=== PATIENT | female | born 1960 | race Asian ===

== ENCOUNTER 2019-02-14 09:12 | Emergency (ER) | payer OTHER, BC ==
[~2019-02-14] VITALS: Ht 152.4 cm; Wt 48.1 kg
[2019-02-14 09:12] VITALS: BP 149/79
[~2019-02-14 09:12] MED LIST: AUGMENTIN 875875 MG PO; NOHOMEMEDICATIONS; VICODIN PO
== END 2019-02-14 10:09 | disposition home or self-care (01) ==
LOC: ER 09:12
DX: T23.171A Burn of first degree of right wrist, initial encounter (principal); X10.1XXA Contact with hot food, initial encounter; Y93.89 Activity, other specified; Y92.89 Other specified places as the place of occurrence of the external cause; Y99.0 Civilian activity done for income or pay